=== PATIENT | female | born 1935 | race Caucasian/White ===

== ENCOUNTER 2017-10-06 15:57 | Emergency (ER) | payer OTHER ==
[~2017-10-06] VITALS: Ht 162.6 cm; Wt 109.1 kg
[2017-10-06 18:21] LABS: HEMATOCRIT 42.7 % (36.0-46.0); HEMOGLOBIN 13.7 G/DL (11.9-15.5); MCH 31.2 PG (29.0-34.0); MCHC 32.1 G/DL (30.0-36.0); MCV 97.3 FL (83-99); PLATELET COUNT 214 K/uL (156-360); RBC DIS.WIDTH-CV 11.9 % (11.8-14.6); RED BLOOD COUNT 4.39 M/uL (3.80-5.20); WHITE BLOOD COUNT 15.8 K/uL (4.1-10.2)
[2017-10-06 18:35] LABS: CHLORIDE 104 mEq/L (99-109); POTASSIUM 4.4 mEq/L (3.7-5.4); SODIUM 141 mEq/L (136-147)
[2017-10-06 18:36] LABS: GLUCOSE 141 mg/dL (70-99)
[2017-10-06 18:40] LABS: CREATININE 0.9 mg/dL (0.6-1.3); GFR ESTIMATE (CALCULATED) > 59 mL/min/
[2017-10-06 18:41] LABS: UREA NITROGEN (BUN) 13 mg/dL (9-23)
[2017-10-07] MEDS ORDERED: FISH OIL 1,0001 EAC7 PO (00:19)
[2017-10-07] MEDS ORDERED: METOPROLOL SUCC25 MG PO (00:19)
[2017-10-07] MEDS ORDERED: NIACIN500 M4 PO (00:20)
[2017-10-07] MEDS ORDERED: OMEPRAZOLE40 M1 PO (00:20)
[2017-10-07] MEDS ORDERED: FLEXERIL10 MG PO (00:21)
[2017-10-07] MEDS ORDERED: ZOLOFT25 MG PO (00:21)
[2017-10-07] MEDS ORDERED: REQUIP0.25 MG PO (00:22)
[2017-10-07] MEDS ORDERED: LIPITOR20 MG PO (00:22)
[2017-10-07] MEDS ORDERED: PERCOCET 10/1 TABLET PO (00:23)
[2017-10-07] MEDS ORDERED: ARICEPT10 MG PO (00:23)
[2017-10-07] MEDS ORDERED: VITAMIN E400 UNIT PO (00:24)
[2017-10-07] MEDS ORDERED: GABAPENTIN400 MG PO (00:24)
[2017-10-07] MEDS ORDERED: MULTI VITAMIN1 EACH PO (00:25)
[2017-10-07] MEDS ORDERED: VITAMIN D2000 UNI1 PO (00:25)
[2017-10-07] MEDS ORDERED: VITAMIN B12-FO1 EACH PO (00:26)
[2017-10-07] MEDS ORDERED: ASPIRIN81 M2 PO (00:26)
[2017-10-07] MEDS ORDERED: CRANBERRY450 M1 PO (00:27)
[2017-10-07] MEDS ORDERED: MAGNESIUM250 MG PO (00:27)
[2017-10-07 00:57] VITALS: BP 102/75
== END 2017-10-07 00:56 | disposition short-term general hospital (02) ==
LOC: EME 15:57
PROVIDERS: Emergency Medicine Emergency Medical Services
DX: S72.402A Unspecified fracture of lower end of left femur, initial encounter for closed fracture (principal); S00.03XA Contusion of scalp, initial encounter; W01.198A Fall on same level from slipping, tripping and stumbling with subsequent striking against other object, initial encounter; Y93.01 Activity, walking, marching and hiking; Z96.652 Presence of left artificial knee joint; F03.90 Unspecified dementia, unspecified severity, without behavioral disturbance, psychotic disturbance, mood disturbance, and anxiety; I10 Essential (primary) hypertension; K21.9 Gastro-esophageal reflux disease without esophagitis; E78.5 Hyperlipidemia, unspecified; Z95.2 Presence of prosthetic heart valve; Z88.5 Allergy status to narcotic agent
CPT/HCPCS: 70450; 71045; 73564; 80048; 85027; 93005; 99281; 99285; J2270; J7040